=== PATIENT | male | born 1975 | race African-American/Black ===

== ENCOUNTER 2017-03-04 21:14 | Emergency (ER) | payer OTHER ==
[~2017-03-04] VITALS: Ht 190.5 cm; Wt 131.5 kg
[~2017-03-04 21:14] MED LIST: COLACE100 MG PO; CYCLOBENZAPRINE10 MG PO; FAMOTIDINE PO; FORTAMET500 MG PO; GLIPIZIDE ER5 MG PO; GLUCOPHAGE500 MG PO; HYDROCODON-ACE1 EAC8; HYDROCODONE-AP1 EACH PO; IBUPROFEN 800800 M1 PO; KEFLEX500 MG PO; LANTUSSOLASTAR; LISINOPRIL20 MG PO; LISINOPRIL40 MG; MOBIC15 MG PO; MOBIC7.5 MG PO; NEURONTIN600 MG; NORVASC10 MG; NOVOLOG100 UNIT/1; OXYCONTIN; OXYCONTIN CR 1010 M1 PO; PEPCID40 MG PO; PERCOCET 10-321 EACH PO; PERCOCET 5-3251 EACH PO; PREDNISONE 20 M20 M1 PO; PREDNISONE 20 M20 MG PO; ULTRAM 50MG TAB50 MG; VALIUM5 MG PO; VICOPROFEN 2001 EACH PO; VISTARIL 25 MG25 M1 PO
[2017-03-04] MEDS ORDERED: CLEOCIN HCL150 MG PO (21:48)
[2017-03-04] MEDS ORDERED: MOBIC7.5 MG PO (21:48)
[2017-03-04 21:55] VITALS: BP 177/99
== END 2017-03-04 21:55 | disposition home or self-care (01) ==
LOC: ER 21:14
DX: L02.11 Cutaneous abscess of neck (principal); G43.909 Migraine, unspecified, not intractable, without status migrainosus; Z88.5 Allergy status to narcotic agent; Z91.041 Radiographic dye allergy status; Z88.6 Allergy status to analgesic agent; Z91.013 Allergy to seafood